=== PATIENT | female | born 1995 | race Caucasian/White ===

== ENCOUNTER 2018-11-19 10:39 | Emergency (ER) | payer MEDICAID, OTHER ==
[~2018-11-19] VITALS: Ht 160 cm; Wt 98.0 kg
[2018-11-19 10:42] VITALS: BP 136/88; PULSE 98; RESP 18; Ht 160 cm; Wt 98.0 kg
--- NOTE | 2018-11-19 11:51 | ERD ---
ER Documentation Chief Complaint Chief Complaint pt is bib family with c/o heavy vag bleeding since yesterday with clots HPI Patient is 23 years old female with PMHx of irregular menstrual bleeding presenting to the clinic for heavy vaginal clots since 2 days ago. Patient admits to bleeding for 1 month but severity worsened yesterday. 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 Patient reports last heavy blot was at 9:30AM. Patient denies , dysuria, vaginal discharge. Patient admits to pelvic and suprapubic pain. ROS All systems reviewed and are negative except as per history of present illness. Medications Home Meds Active Scripts Ferrous Sulfate* (Ferrous Sulfate*) 325 Mg Tabec, 325 MG PO DAILY for 14 Days, #14 TAB Prov:EYAL MCKEON PA-C 11/19/18 Allergies Allergies: Coded Allergies: No Known Allergy (Unverified , 11/19/18) PMhx/Soc Medical and Surgical Hx: pt denies Medical Hx, pt denies Surgical Hx History of Surgery: No Anesthesia Reaction: No Hx Neurological Disorder: No Hx Respiratory Disorders: No Hx Cardiac Disorders: No Hx Psychiatric Problems: No Hx Miscellaneous Medical Probl: No Hx Alcohol Use: No Hx Substance Use: No Hx Tobacco Use: No Smoking Status: Never smoker Physical Exam Vitals Vital Signs Date Temp Pulse Resp B/P (MAP) Pulse Ox O2 O2 Flow FiO2 Time Delivery Rate 11/19/18 98.3 98 18 136/88 98 10:42 (104) Physical Exam Const: No acute distress Head: Atraumatic Eyes: Normal Conjunctiva Resp: Clear to auscultation bilaterally Cardio: Regular rate and rhythm, no murmurs Abd: Soft, non tender, non distended. Normal bowel sounds. No suprapubic tenderness. Skin: No petechiae or rashes Back: No midline or flank tenderness. Negative CVAT. Ext: No cyanosis, or edema Neur: Awake and alert Psych: Normal Mood and Affect Result Diagram: 11/19/18 1159 11/19/18 1159 Results 24 hrs Laboratory Tests Test 11/19/18 11:59 11/19/18 12:02 White Blood Count 6.5 10^3/ul Red Blood Count 3.98 10^6/ul Hemoglobin 10.9 g/dl Hematocrit 33.3 % Mean Corpuscular Volume 83.7 fl Mean Corpuscular Hemoglobin 27.4 pg Mean Corpuscular Hemoglobin Concent 32.7 g/dl Red Cell Distribution Width 13.9 % Platelet Count 307 10^3/UL Mean Platelet Volume 10.7 fl Immature Granulocytes % 0.500 % Neutrophils % 64.0 % Lymphocytes % 27.5 % Monocytes % 6.8 % Eosinophils % 0.9 % Basophils % 0.3 % Nucleated Red Blood Cells % 0.0 /100WBC Immature Granulocytes # 0.030 10^3/ul Neutrophils # 4.2 10^3/ul Lymphocytes # 1.8 10^3/ul Monocytes # 0.4 10^3/ul Eosinophils # 0.1 10^3/ul Basophils # 0.0 10^3/ul Nucleated Red Blood Cells # 0.0 10^3/ul Urine Color RED Urine Clarity SLIGHTLY CLOUDY Urine pH 6.0 Urine Specific [place] 1.010 Urine Ketones NEGATIVE mg/dL Urine Nitrite NEGATIVE mg/dL Urine Bilirubin NEGATIVE mg/dL Urine Urobilinogen NEGATIVE mg/dL Urine Leukocyte Esterase NEGATIVE Pauly/ul Urine Microscopic RBC > 182 /HPF Urine Microscopic WBC 114 /HPF Urine Bacteria FEW /HPF Urine Hemoglobin 3+ mg/dL Urine Glucose NEGATIVE mg/dL Urine Total Protein 2+ mg/dl Sodium Level 140 mmol/L Potassium Level 4.2 mmol/L Chloride Level 106 mmol/L Carbon Dioxide Level 27 mmol/L Anion Gap 7 Blood Urea Nitrogen 9 mg/dl Creatinine 0.60 mg/dl Est Glomerular Filtrat Rate mL/min > 60 mL/min Glucose Level 97 mg/dl Calcium Level 9.2 mg/dl Total Bilirubin 0.4 mg/dl Direct Bilirubin 0.00 mg/dl Indirect Bilirubin 0.4 mg/dl Aspartate Amino Transf (AST/SGOT) 22 IU/L Alanine Aminotransferase (ALT/SGPT) 36 IU/L Alkaline Phosphatase 50 IU/L Total Protein 7.6 g/dl Albumin 4.1 g/dl Globulin 3.50 g/dl Albumin/Globulin Ratio 1.17 POC Beta HCG, Qualitative NEGATIVE Procedures/MDM Patient was seen and evaluated for heavy vaginal bleeding. CBC, CMP, Urinalysis, revealed elevated urine WBC and trace urine bacteria, and low hemogloblin and hematocrit (anemia from heavy vaginal bleeding). Urine is negative. Pelvic ultrasound revealed 1. Heterogeneous borderline abnormally thickened endometrium measuring 1.5 cm. This should be reevaluated after 1 cycle to document resolution to normal thin endometrium. 2. Ovaries unremarkable. 3. No adnexal masses or free fluid. Patient is stable and ready for discharge. Patient was advise to f/u with [employer]TE[employer]NCE REPAIRER and continue taking Sronyx. Patient was advised that ED will contact patient for urine culture result. Patient was advised to have repeat trasvaginal ultrasound post 1 month cycle. Patient was advised that she can return to ED or F/U with [employer]TENANCE REPAIRER. Patient will be treated with ferrous sulfate for anemia that does not require transfusion. Patient was given ultrasound report. Departure Diagnosis: Primary Impression: Vaginal bleeding Condition: Stable Patient Instructions: [facility] Referrals: [facility] Additional Instructions: Patient advised to return to the ED immediately for new or worsening symptoms. Patient advised to follow up with primary care provider in the next 24-48 hours. Patient verbalized understanding and agrees with treatment plan and course of action. If patient has no primary care they may follow up with [facility] [address] [place] [id number] or [facility] [address] [place] [address] or [facility] [address] [place] [address] EYAL MCKEON PA-C Nov 19, 2018 11:51
[2018-11-19] MEDS ORDERED: FER325 PO (13:18)
== END 2018-11-19 13:24 | disposition home or self-care (01) ==
LOC: FTE 10:39
DX: N93.9 Abnormal uterine and vaginal bleeding, unspecified (principal); R10.2 Pelvic and perineal pain
CPT/HCPCS: 36415; 76830; 76856; 80053; 81001; 81025; 85025; 87086; Z7502